=== PATIENT | female | born 1935 | race Caucasian/White ===

== ENCOUNTER 2016-10-02 14:00 | Inpatient (IN) | payer MEDICARE, BC ==
[~2016-10-02] VITALS: Ht 172.7 cm; Wt 68.5 kg
--- NOTE | ~2016-10-02 | OR ---
PATIENT'S NAME: DEBORAH DUNNE [facility] AGE: 80 Y [address] ROOM: [place] [id number] [place] [facility] [place]: 10/11/2016 OR/Procedure Report DISCHARGE DATE: FAMILY PHYSICIAN: Tiffany Goode MD ATTENDING PHYSICIAN: JACOB TO SURGEON: Jacob To MD RIBBON HAND: 1. ANNABELLA Morales. 2. Florentino Max CST/KATI. DATE OF PROCEDURE: 10/11/2016 PREOPERATIVE DIAGNOSIS: Degenerative joint disease, right knee. POSTOPERATIVE DIAGNOSIS: Degenerative joint disease, right knee. OPERATION: Right total knee arthroplasty with computer navigation. ANESTHESIA: Spinal anesthesia plus adductor canal block plus periarticular local anesthesia (ropivacaine with epinephrine and Toradol). ESTIMATED BLOOD LOSS: Less than 10 mL. DRAIN: None. SPECIMEN: None. COMPLICATIONS: None. IMPLANT SYSTEM: [employer]. 1. Size 5 right posterior stabilized femoral component. 2. Size 4 universal modular tibial baseplate. 3. A 9 mm posterior stabilized size 4 X3 tibial polyethylene insert. 4. A 32 mm oval X3 patellar component. INDICATIONS FOR SURGERY: Deborah Dunne is a 80-year-old female who presents with advanced right knee degenerative joint disease and associated severely compromised activities of daily living. The patient has decided to proceed with knee replacement after having been thoroughly counseled regarding the associated risks, benefits, and limitations. We have specifically reviewed the risks and implications of infection, deep venous thrombosis, pulmonary embolism, mortality, neurovascular complications, blood transfusion (and associated potential for disease transmission or transfusion reaction), stiffness, instability, mechanical deterioration of the components (due to wear and or loosening), and the potential need for revision. We have also emphasized the importance of active involvement and compliance with post- operative physical therapy as a means of optimizing range of motion and PATIENT'S NAME: DEBORAH DUNEN [facility] AGE: 80 Y [address] ROOM: [place] [address] [place] [facility] [place]: 10/11/2016 OR/Procedure Report DISCHARGE DATE: FAMILY PHYSICIAN: Tiffany Goode MD ATTENDING PHYSICIAN: JACOB TO functional recovery. Informed consent has been granted. DESCRIPTION OF PROCEDURE: The patient was positioned supine after administration of anesthesia and prophylactic antibiotics. A well-padded pneumatic tourniquet was placed around the right proximal thigh, and the right lower extremity was prepped and draped with vigilant sterile technique. The patient's name as well as the intended operative side and procedure were confirmed with a verbal time-out involving myself, the circulating nurse, the scrub nurse, and the anesthesiologist. Examination under anesthesia demonstrated a large effusion. There was a valgus deformity. There was no erythema. There was no abnormal warmth. There were no active skin lesions or masses. Range of motion under anesthesia was from a 2 degree flexion contracture to 135 degrees of flexion. There was no ligamentous insufficiency. The right lower extremity was elevated and exsanguinated with an Esmarch wrap, and the pneumatic tourniquet was inflated to 300mmHg. The knee was approached through a longitudinal midline incision. A medial parapatellar arthrotomy was performed and the patella was everted. Examination of the joint space demonstrated a large amount of benign-appearing translucent synovial fluid. There were small osteophytes at the intercondylar notch. The anterior cruciate ligament was attenuated. The posterior cruciate ligament was intact. There was a 2 cm wide band of high-grade partial-thickness articular cartilage loss extending across the equator of the patella. There was full-thickness loss of articular cartilage involving 80% of the lateral half of the femoral trochlea. There were small osteophytes at the lateral femoral trochlea and the lateral femoral condyle. There was full-thickness loss of articular cartilage involving 50% of the lateral femoral condyle and the central 2.5 cm diameter region of the lateral tibial plateau. There was a 1 cm diameter region of high-grade partial-thickness articular cartilage loss at the central aspect of the medial femoral condyle and moderate grade 3 degenerative changes throughout the majority of the posterior half of the medial femoral condyle. The medial meniscus was truncated with mild inner perimeter tearing of the remnant of the medial meniscus. There was a small peripheral remnant of the lateral meniscus. Remnants of the menisci and cruciate ligaments were excised. The [employer] navigation femoral tracker was pinned in place at the distal aspect of the femoral trochlea. Absence of motion between the femur and the tracking device was confirmed manually and visually. Femoral osseous landmarks were obtained in order to calibrate the computer navigation system. Landmarks included the center of rotation of the ipsilateral hip, the center-point of the distal femur, the femoral AP axis, 57 points on the medial femoral condyle PATIENT'S NAME: DEBORAH DUNNE [facility] AGE: 80 Y [address] ROOM: [id number] [place], [place] [address] [place] [facility] [place]: 10/11/2016 OR/Procedure Report DISCHARGE DATE: FAMILY PHYSICIAN: Tiffany Goode MD ATTENDING PHYSICIAN: JACOB TO articular surface, and 57 points on the lateral femoral condyle articular surface. The Tutum computer navigation system was subsequently utilized to position the distal femoral resection block such that the distal femoral resection was performed perfectly perpendicular to the femoral mechanical axis. The distal femoral resection was performed with a True Pivot oscillating saw. The Tutum computer navigation tibial tracker was pinned in place at the anterior aspect of the tibial plateau. Absence of motion between the tibia and the tracking device was confirmed manually and visually. Tibial osseous landmarks were obtained in order to calibrate the computer navigation system. Landmarks included the center-point of the tibial plateau, the AP tibial axis, 57 points on the medial tibial plateau articular surface, 57 points on the lateral tibial plateau articular surface, the medial malleolus, and the lateral malleolus. The Tutum computer navigation system was subsequently utilized to position the proximal tibial resection block such that the proximal tibial resection was performed perfectly perpendicular to the tibial mechanical axis. The proximal tibial resection was performed with a [employer] oscillating saw. Perpendicularity of the tibial resection with respect to the tibial shaft axis was reconfirmed by inserting a spacer- block attached to an extramedullary guide vernon. External rotation of the anterior and posterior femoral resections was set parallel to the epicondylar axis and carefully adjusted in order to create a rectangular flexion gap. The box resection was performed with a reciprocating saw. Anterior and posterior chamfer resections were performed with the oscillating saw. Posterior condyle osteophytes were excised with an osteotome. All other osteophytes were excised with a rongeur. Resection of all remnants of the menisci was reconfirmed. Flexion and extension gaps were confirmed to be symmetric and well balanced with a spacer-block technique. The patella resection was performed with an oscillating saw such that the composite thickness of the reconstructed patella was equivalent to the thickness of the [place] patella. Patella tracking was optimal, and there was no need for a lateral retinacular release. Release of the popliteus tendon and partial release of the iliotibial band were necessary in order to balance the flexion and extension gaps. The patient was noted to be moderately osteopenic. All trial components were removed and all prepared osseous surfaces were thoroughly irrigated with pulsatile saline lavage and dried prior to cementing all three components in a single stage using Kely Simplex cement containing pre-mixed tobramycin. All extruded excess cement was removed. The entire joint space was thoroughly inspected and thoroughly irrigated with PATIENT'S NAME: DEBORAH DUNNE [facility] AGE: 80 Y [address] ROOM: [place] [id number] [place] [facility] [place]: 10/11/2016 OR/Procedure Report DISCHARGE DATE: FAMILY PHYSICIAN: Tiffany Goode MD ATTENDING PHYSICIAN: JACOB TO bacteriostatic pulsatile saline lavage to assure that there was no residual debris of any sort. Final range of motion was from full extension (with no passive hyperextension) to 130 degrees of flexion. Patella tracking was reconfirmed to be optimal. There was very good anteroposterior stability at 90 degrees of flexion. There was 1 mm of medial lift-off to valgus stress in full extension. There was 0 mm of lateral lift-off to varus stress in full extension. The arthrotomy was closed with multiple simple and [id number] interrupted #1 Vicryl. Subcutaneous tissues were thoroughly re-irrigated with bacteriostatic pulsatile saline lavage. Subcutaneous tissues were re- approximated with simple buried interrupted #0 Vicryl sutures. The skin was closed with simple buried interrupted 2-0 Vicryl sutures followed by surgical christa. The dressing consisted of Xeroform gauze, 4x4 gauze, ABD pads and two 6-inch Andrea Wraps. There were no intra-operative complications. It should be noted that the physician's licensed investment sales assistant played an active, integral role throughout this entire operation. By providing expert retraction, they greatly facilitated and expedited safe and effective exposure of the distal femur, proximal tibia and patella for preparation and implantation of the components. They were also actively involved in the patient's positioning, prepping and draping, as well as wound closure. MD PANCHO BOBO/vanessa /[id number] d: 10/11/16 1831 t: 10/18/16 0752, OPERATIVE SUMMARY
--- NOTE | ~2016-10-02 | DS ---
PATIENT'S NAME: DEBORAH DUNNE [facility] AGE: 80 Y [address] ROOM: [place] [address] [place] [facility] [place]: 10/11/2016 Discharge Summary DISCHARGE DATE: 10/13/2016 FAMILY PHYSICIAN: Tiffany Goode MD ATTENDING PHYSICIAN: Jacob To PRIMARY DIAGNOSIS: Degenerative joint disease of the right knee. SECONDARY DIAGNOSE: 1. History of left footdrop (peroneal neuropathy). 2. Hypertension. PROCEDURE PERFORMED: Right total knee arthroplasty. HISTORY: The patient is a 80-year-old female, who presents with advanced right knee degenerative joint disease and associated severely compromised activities of daily living. The patient has decided to proceed with total knee arthroplasty after having been thoroughly counseled regarding the risks, benefits, limitations and alternatives. Please refer to the outpatient clinic notes and admission history and physical for this patient. HOSPITAL COURSE: The patient underwent a right total knee arthroplasty on 10/11/2010 without complications. Spinal anesthesia plus adductor canal block plus periarticular local anesthesia. was utilized. The patient received 24 hours of perioperative prophylactic antibiotics and remained hemodynamically stable, neurovascularly intact throughout the entire hospital course. The postoperative prophylactic deep venous thrombosis prophylaxis consisted of Xarelto, early mobilization and pneumatic compression devices. Daily physical therapy for gait training, transfer training range of motion and quadriceps isometric exercises were received. The patient progressed well in physical therapy. On the date of discharge, 10/13/2016, the incision at the knee was healing well and showed no signs of infection. DISPOSITION: Home. DISCHARGE ACTIVITY: The patient is to bear weight as tolerated with range of motion and quadriceps isometric exercises as instructed. The operative extremity is to be elevated at least 90% of the day. There is to be sterile 4x4 gauze dressings to the incision daily. Dr. To is to be notified immediately if there is any increased pain, fevers, chills erythema or drainage. DISCHARGE MEDICATIONS: 1. Xarelto 10 mg 1 tab p.o. daily for 12 days for postoperative DVT PATIENT'S NAME: DEBORAH DUNNE [facility] AGE: 80 Y [address] ROOM: [place] [address] [place] [facility] [place]: 10/11/2016 Discharge Summary DISCHARGE DATE: 10/13/2016 FAMILY PHYSICIAN: Tiffany Goode MD ATTENDING PHYSICIAN: Jacob To. 2. Johnston 5/325 mg 1 to 2 tabs p.o. every 4 hours p.r.n. for pain. 3. She is then instructed to continue all her other pre-admission medications as instructed by her internal medicine doctor. FOLLOWUP: Followup appointment is to be with Dr. To's office on 10/18/2016 for her initial postoperative evaluation with x-rays and staple removal at that time. MICK GUTIERREZ PA-C FOR JACOB TO MD SMW/modl /[id number] d: 10/17/169 t: 10/18/162057, DISCHARGE SUMMARY
[~2016-10-02 14:00] MED LIST: ALTACE10 MG PO; ASPIRIN EC81 MG PO; CALCIUM 600 +1 EAC9 PO; COSOPT DROPS 1010 ML OPHTH; LUMIGAN 0.01%2.5 ML OPHTH; MOBIC15 MG PO; NORVASC10 MG PO; [UNRECOGNIZED DRUG - OTHER] PO
[2016-10-13] MEDS ORDERED: XARELTO10 MG PO (13:45)
[2016-10-13] MEDS ORDERED: DILAUDID 2MG(HYD2 MG PO (13:46)
[2016-10-13] MEDS ORDERED: NORCO 5-325 TA1 EACH PO (15:00)
== END 2016-10-13 15:20 | disposition disaster alternative care site (69) | DRG 470 ==
LOC: GMSU 10-11 05:06 → G3N 10-11 05:06 → GMSU 10-11 10:11
PROVIDERS: ADMIT Orthopaedic Surgery
PROC: 0SRC0J9 Replacement of Right Knee Joint with Synthetic Substitute, Cemented, Open Approach (ICD-10-PCS; principal; 2016-10-11)
PROC: 8E0YXBZ Computer Assisted Procedure of Lower Extremity (ICD-10-PCS; principal; 2016-10-11)
DX: M17.11 Unilateral primary osteoarthritis, right knee (principal); G35 Multiple sclerosis; I10 Essential (primary) hypertension; H40.9 Unspecified glaucoma; G57.30 Lesion of lateral popliteal nerve, unspecified lower limb; M85.80 Other specified disorders of bone density and structure, unspecified site; Z87.442 Personal history of urinary calculi; H91.92 Unspecified hearing loss, left ear; Z79.82 Long term (current) use of aspirin; Z85.828 Personal history of other malignant neoplasm of skin
CPT/HCPCS: C1713; C1776; J0690; J1100; J1170; J1885; J2001; J2250; J2795; J7120

== ENCOUNTER → 2016-10-03 | Outpatient (CLI) | payer MEDICARE, BC ==
[~2016-10-03] MED LIST changes: +DILAUDID 2MG(HYD2 MG PO; +NORCO 5-325 TA1 EACH PO; +XARELTO10 MG PO
== END | disposition disaster alternative care site (69) ==
LOC: GNJRC 11:00
DX: Z01.812 Encounter for preprocedural laboratory examination (principal); M17.12 Unilateral primary osteoarthritis, left knee